=== PATIENT | female | born 1975 | race Caucasian/White ===

== ENCOUNTER 2016-08-22 05:50 | Day surgery (SDC) | payer BC, OTHER ==
[2016-08-22] VITALS (7 sets, daily range): BP systolic 118–134; BP diastolic 66–75
[~2016-08-22] VITALS: Ht 165.1 cm; Wt 81.0 kg
[~2016-08-22 05:50] MED LIST: IRON65TA PO; LR 1,000 ML IV SCH; MULT1TAB10 PO; SERT50TA PO; VITA100037 PO
[2016-08-22 06:15] LABS: MEAN CORPUSCULAR HEMOGLOBIN 30.4 pg (27.0-33.0); MEAN CORPUSCULAR HGB CONC 33.9 g/dl (32.0-36.5); MEAN CORPUSCULAR VOLUME 89.5 fl (80.0-96.0); RED CELL DISTRIBUTION WIDTH 12.6 % (11.5-14.5); WHITE BLOOD COUNT 6.6 K/mm3 (4.0-10.0)
[2016-08-22 06:36] LABS: CONTROL LINE HCG INT CTR LINE PRESENT
[2016-08-22] MEDS ORDERED: ROCURONIUM BROMIDE 50 MG/5 ML VIAL As Ordered ONE ×4 (07:14→11:14)
[2016-08-22] MEDS ORDERED: PROPOFOL 200 MG/20 ML VIAL As Ordered ONE (07:14)
[2016-08-22] MEDS ORDERED: ONDANSETRON 4MG/2ML VIAL (J2405) As Ordered ONE ×2 (07:14→12:22)
[2016-08-22] MEDS ORDERED: LIDOCAINE 2% INJ 100 MG/5 ML SDV (FOR ANES.) As Ordered ONE (07:14)
[2016-08-22] MEDS ORDERED: MIDAZOLAM INJ 2 MG/2 ML VIAL (J2250) As Ordered ONE (07:17)
[2016-08-22] MEDS ORDERED: fentaNYL 100 MCG/2 ML INJECTION (J3010) As Ordered ONE ×2 (07:17→08:19)
[2016-08-22] MEDS ORDERED: dexameTHASONE 4 MG/ML 1ML VIAL (J1100) As Ordered ONE (07:18)
[2016-08-22] MEDS ORDERED: DESFLURANE 240 ML INHALANT As Ordered ONE (07:22)
[2016-08-22] MEDS ORDERED: SEVOFLURANE INHAL SOLN 250 ML BTL As Ordered ONE (07:24)
[2016-08-22] MEDS ORDERED: PHENYLephrine HCL 500 MCG/5 ML (100MCG/ML) SYRINGE (J2370) As Ordered ONE (07:48)
[2016-08-22] MEDS ORDERED: ePHEDrine SULFATE 25 MG/5 ML(5MG/ML) SYRINGE As Ordered ONE (08:06)
[2016-08-22] MEDS ORDERED: HYDROmorphone HCL 2 MG/ML 1ML VIAL (J1170) As Ordered ONE (08:55)
[2016-08-22] MEDS ORDERED: SUGAMMADEX SODIUM 500 MG/5 ML VIAL (BRIDION) As Ordered ONE (11:19)
[2016-08-22] MEDS ORDERED: MORPHINE PCA 1MG/ML 100ML CADD As Ordered ONE (12:22)
[2016-08-22] MEDS ORDERED: MORPHINE PCA 1MG/ML 100ML CADD IV PRN (12:30)
[2016-08-22] MEDS ORDERED: NALBUPHINE HCL 10 MG/ML AMP (J2300) IV PRN (12:30)
[2016-08-22] MEDS ORDERED: NALOXONE INJ 0.4 MG/1 ML VIAL (J2310) IV PRN (12:30)
[2016-08-22] MEDS ORDERED: diphenhydrAMINE INJ 50MG/ML VIAL (J1200) IV PRN (12:30)
[2016-08-22] MEDS ORDERED: EPIDURAL/PCA KEYS XX PRN (12:30)
[2016-08-22] MEDS ORDERED: LR 1,000 ML IV SCH ×2 (12:30→12:45)
[2016-08-22] MEDS ORDERED: IBUPROFEN 600 MG TAB PO PRN (12:30)
[2016-08-22] MEDS ORDERED: ONDANSETRON 4MG/2ML VIAL (J2405) IV PRN (12:45)
[2016-08-22] MEDS ORDERED: PERCOCET 5MG/325MG TAB PO PRN (12:45)
[2016-08-22] MEDS ORDERED: MORPHINE 2 MG/ML 1ML SYRINGE IV PRN (12:45)
[2016-08-22] MEDS: fentaNYL 100 MCG/2 ML INJECTION (J3010) IV PRN ×4 (12:50→13:05)
[2016-08-22] MEDS: LR 1,000 ML IV SCH ×2 (14:05→22:49)
[2016-08-23] VITALS: BP 110/66
[2016-08-23 04:00] VITALS: BP 110/71
[2016-08-23] MEDS ORDERED: NORCO, ANEXSIA 5/325MG TABLET (HYDROcodone/ACETAMINOPHEN) PO PRN (06:00)
--- NOTE | 2016-08-23 07:06 | RO ---
DATE OF PROCEDURE: 08/22/2016 PREOPERATIVE DIAGNOSIS/INDICATION FOR SURGERY: Menometrorrhagia, pain, tenderness, dyspareunia and symptomatic fibroids. POSTOPERATIVE DIAGNOSIS: Menometrorrhagia, pain, tenderness, dyspareunia and symptomatic fibroids. Uterus weighed 803 grams in the operating room (OR). PROCEDURE: Robotic assisted hysterectomy with bilateral salpingectomy. The patient retains her ovaries. SURGEON: Kathrin Steven MD LOCUM TENENS: Jennifer Robison NP ANESTHESIA: General endotracheal anesthesia. BRIEF DESCRIPTION OF PROCEDURE AND FINDINGS: Karen was brought to the operating room where sufficient general endotracheal anesthesia was induced. She was prepped, draped and positioned in the usual sterile fashion with the uterine manipulator placed after the uterus had been sounded to 16. Pradhan of course was also placed. Attention was turned to the umbilicus, where a semilunar transverse incision was made and sharp and blunt dissection were continued through subcutaneous tissues to the level of the rectus fascia, which was transversely incised, secured with #0 Vicryl retention sutures and the peritoneum then entered under direct visualization, and the Efrem cannula placed. CO2 insufflation was then begun, and after adequate CO2 insufflation the peritoneal cavity was visualized. As noted in the operative photos, the fibroid uterus essentially fills the pelvis. It was rising up into the abdomen as expected on the preoperative exam. Under anesthesia, it is a bit more 16 week size than 14, and there is also projecting of the left fundus sort of a Viajy Mouse ear and then lower just above the internal cervical os another right lateral fibroid, but as the picture show there was an enlarged bulky fibroid uterus distorting the anatomy. Two left-sided, one right-sided port were placed. Patient was placed in steep Trendelenburg. We then freed the fallopian tubes from the mesentery and dissected the utero-ovarian suspensory ligaments with care taken. The ureters were a little distended before we event started, consistent with this enlarged uterus, but we were able to see them quite readily this way and thus, avoid them despite the distortion of the tissues. We then carefully continued the dissection through the broad ligament and this was somewhat difficulty posteriorly, but we were able to do it lifting the tissue somewhat aggressively because we could not with the uterine manipulator lift the uterus up, but we could twist the uterus and lift with the general office assistant's help as well. Then, we carefully went through the round ligament bilaterally. There was considerably more blood supply in these pedicles than typical, consistent with recruited blood supply for those fibroids. We then used the 30 degree down scope to dissect across the bladder flap. With backfilling the bladder, we readily able to see that we were well away from the bladder and able to displace it. It was placed, dissected quite easily. We then rotated the uterus rather than elevating it in order to get to each lateral aspect and get to the vasculature. As often happens with fibroids, the vasculature had branched apart so there were many separate vessels we had to take down and they were larger than the typical size, but working one by one we were able to this with good control and did not have any untoward bleeding. Having secured the uterine blood supply and seeing the uterus [place] as expected, we then made the colpotomy anteriorly, worked our way through the lateral aspect and then just rotated the uterus over rather than elevating it, and we were careful to watch those ureters, get the peritoneum away and then transect the tissues. Eventually had completed that colpotomy, brought the uterus down to the vagina and then removed the manipulator. We went ahead and undocked so I could from below and deliver the uterus down to the vagina and then using the SuperCut, we did a myomectomy of that larger fibroid having sort of rolled the uterus over and having delivered that we were able to deliver the rest of the uterus. The uterus weighed 803 grams in the OR. We then closed the cuff from below because it was readily visible at this point. We had that well supported and of course we secured the uterosacral in such in the usual fashion, then went back up above and as documented in the operative photographs there was no evidence of undo bleeding and the blood supply to the ovaries looked good. There was good closure at the cuff and no evidence of injury to the bladder, ureters or any persistent bleeding. So the procedure was then ended with the CO2 allowed to escape the abdomen. The fascial wound at the umbilicus closed with #0 Vicryl and then #3-0 Vicryl used to close the skin at all the ports, and dry sterile dressing was then applied. Estimated blood loss for the procedure was only about 50 mL, because we just took each vessel one at a time. Fluid replacement was crystalloid. Complications: None. Condition and Disposition: Karen tolerated the procedure well and was recovering in the recovery room in good condition.
[2016-08-23 07:47] LABS: MEAN CORPUSCULAR HEMOGLOBIN 30.4 pg (27.0-33.0); MEAN CORPUSCULAR HGB CONC 33.1 g/dl (32.0-36.5); MEAN CORPUSCULAR VOLUME 91.8 fl (80.0-96.0); RED CELL DISTRIBUTION WIDTH 12.7 % (11.5-14.5); WHITE BLOOD COUNT 12.4 K/mm3 (4.0-10.0)
[2016-08-23] MEDS: LR 1,000 ML IV SCH (07:55)
[2016-08-23 08:00] VITALS: BP 137/72
[2016-08-23] MEDS ORDERED: NORCOTAB PO (09:21)
[2016-08-23] MEDS ORDERED: IBUP600T26 PO (09:21)
== END 2016-08-23 10:10 | disposition home or self-care (01) ==
LOC: M SDC 05:50 → M PED 13:34 → M SDC 08-23 10:10
PROVIDERS: ATTEND Obstetrics & Gynecology
DX: N92.0 Excessive and frequent menstruation with regular cycle (principal); N94.10 Unspecified dyspareunia; D25.1 Intramural leiomyoma of uterus; D25.2 Subserosal leiomyoma of uterus; F32.9 Major depressive disorder, single episode, unspecified; Z79.899 Other long term (current) drug therapy; Z88.0 Allergy status to penicillin
CPT/HCPCS: 36415; 58573; 84703; 85027; 86850; 86900; 86901; 88309; 96374; 96375; J0690; J1100; J1170; J2250; J2370; J2405; J3010